=== PATIENT | female | born 1990 | race American Indian/Alaskan Native ===

== ENCOUNTER 2021-04-05 20:03 | Inpatient (IN) | payer SELFPAY ==
[2021-04-05] MEDS ORDERED: levETIRAcetam 1000 MG/NS 0.75% 1,000 MG/100 ML BAG IV ONE ×2 (20:43→22:01)
[2021-04-05] MEDS ORDERED: SODIUM CHLORIDE 0.9% 500 ML 500 ML IV ONE (20:43)
--- NOTE | 2021-04-05 20:45 | Emergency Department Report ---
ED General Adult HPI - General Chief complaint: Seizure Stated complaint: SEIZURES PUI?: No Time Seen by Provider: 04/05/21 20:39 Source: EMS (Verbal report received from emergency medical services. EMS documentation not available at time of chart dictation ), RN notes reviewed, old records reviewed Mode of arrival: Stretcher Limitations: Altered Mental Status - History of Present Illness Initial comments: The patient was evaluated in the emergency department for symptoms described in the history of present illness. He/she was evaluated in the context of the global COVID-19 pandemic, which necessitated consideration that the patient might be at risk for infection with the virus that causes COVID-19. Institutional protocols and algorithms that pertain to the evaluation of patients at risk for COVID-19 are in a state of rapid change based on information released by regulatory bodies including the CDC and federal and state organizations. These policies and algorithms were followed during the patient's care in the emergency department. Please note that these policies, procedures and recommendations changed on a rapid basis. The patient is a 31-year-old female, who was brought to the hospital today by EMS EMS articulated complaint of seizures. They reports that people who live with the patient called 911. They further report the patient had normal Accu-Chek and normal vital signs in the field. EMS believes the patient had a few seizures, the patient herself at this time is confused. She is not seizing initially in the emergency room. The patient then ambulated to the restroom, and was seen to have a generalized tonic-clonic event which was terminated. The patient is now sleeping comfortably in her stretcher, without evidence of further convulsive activity. -: This evening Severity scale (0 -10): 0 - Related Data Home Medications Medication Instructions Recorded Confirmed Last Taken Lacosamide [Vimpat] 150 mg PO BID 04/06/21 04/06/21 Unknown Previous Rx's Medication Instructions Recorded Last Taken Type OXcarbazepine [Trileptal] 300 mg PO BID #60 tablet 09/23/18 Unknown Rx levETIRAcetam [Keppra TAB] 500 mg PO BID #60 tablet 04/05/21 Unknown Rx Allergies Allergy/AdvReac Type Severity Reaction Status Date / Time No Known Allergies Allergy Unverified 01/13/14 17:02 ED Review of Systems ROS: Stated complaint: SEIZURES Other details as noted in HPI Comment: Unobtainable due to pts medical conditions ED Past Medical Hx - Past Medical History Hx Seizures: Yes - Social History Smoking Status: Never Smoker Substance Use Type: None - Medications Home Medications: Home Medications Medication Instructions Recorded Confirmed Last Taken Type OXcarbazepine [Trileptal] 300 mg PO BID #60 tablet 09/23/18 Unknown Rx levETIRAcetam [Keppra TAB] 500 mg PO BID #60 tablet 04/05/21 Unknown Rx Lacosamide [Vimpat] 150 mg PO BID 04/06/21 04/06/21 Unknown History ED Physical Exam - General Limitations: Altered Mental Status General appearance: alert, anxious, in distress - Head Head exam: Present: atraumatic, normocephalic - Eye Eye exam: Present: normal appearance, EOMI. Absent: nystagmus - ENT ENT exam: Present: normal exam, normal orophraynx, mucous membranes moist, normal external ear exam - Neck Neck exam: Present: normal inspection, full ROM. Absent: tenderness, meningismus - Respiratory Respiratory exam: Present: normal lung sounds bilaterally. Absent: respiratory distress, wheezes, rales, rhonchi, stridor, decreased breath sounds - Cardiovascular Cardiovascular Exam: Present: regular rate, normal rhythm, normal heart sounds. Absent: bradycardia, tachycardia, irregular rhythm, systolic murmur, diastolic murmur, rubs, gallop - GI/Abdominal GI/Abdominal exam: Present: soft. Absent: distended, tenderness, guarding, rebound, rigid, pulsatile mass - Extremities Exam Extremities exam: Present: normal inspection, full ROM, other (2+ pulses noted in the bilateral upper and lower extremities. There is no palpable cord. negative Homans sign. Muscular compartments are soft. The pelvis is stable.). Absent: pedal edema, calf tenderness - Back Exam Back exam: Present: normal inspection, full ROM. Absent: tenderness, CVA tenderness (R), CVA tenderness (L), paraspinal tenderness, vertebral tenderness - Neurological Exam Neurological exam: Present: altered, other (The patient is altered. The patient is moving 4 extremities. There is no obvious facial droop. The tongue is midline.) - Psychiatric Psychiatric exam: Present: anxious - Skin Skin exam: Present: warm, dry, intact, normal color. Absent: rash ED Course Vital Signs 04/05/21 04/05/2104/05/22 20:26 20:46 21:00 Temperature 98.4 F Pulse Rate 87 104 H Respiratory 18 24 Rate Blood Pressure 120/70 Blood Pressure 116/74 [Left] O2 Sat by Pulse 98 95 95 Oximetry O2 Sat by Pulse Oximetry [ Digit-Finger] 04/05/21 04/05/21 04/05/21 21:27 21:31 21:45 Temperature Pulse Rate 93 H 96 H 98 H Respiratory 26 H 26 H 17 Rate Blood Pressure Blood Pressure [Left] O2 Sat by Pulse 97 97 97 Oximetry O2 Sat by Pulse Oximetry [ Digit-Finger] 04/05/21 04/05/21 04/05/21 22:00 22:15 22:30 Temperature Pulse Rate 84 99 H 83 Respiratory 19 20 19 Rate Blood Pressure 120/72 120/72 Blood Pressure [Left] O2 Sat by Pulse 100 Oximetry O2 Sat by Pulse Oximetry [ Digit-Finger] 04/05/21 04/05/21 04/05/21 22:45 23:00 23:15 Temperature Pulse Rate 94 H 103 H 87 Respiratory 17 21 18 Rate Blood Pressure 120/72 Blood Pressure [Left] O2 Sat by Pulse Oximetry O2 Sat by Pulse Oximetry [ Digit-Finger] 04/05/21 04/05/21 04/06/21 23:30 23:45 00:00 Temperature Pulse Rate 100 H 93 H 97 H Respiratory 20 18 18 Rate Blood Pressure 120/72 120/72 Blood Pressure [Left] O2 Sat by Pulse Oximetry O2 Sat by Pulse Oximetry [ Digit-Finger] 04/06/21 04/06/21 04/06/21 00:15 00:25 00:31 Temperature Pulse Rate 103 H Respiratory 22 12 Rate Blood Pressure 120/72 120/72 Blood Pressure [Left] O2 Sat by Pulse Oximetry O2 Sat by Pulse 99 Oximetry [ Digit-Finger] 04/06/21 04/06/21 04/06/21 01:03 08:50 09:00 Temperature 97.9 F 98.9 F Pulse Rate 82 87 Respiratory 16 17 Rate Blood Pressure 120/72 128/80 Blood Pressure 126/73 [Left] O2 Sat by Pulse 100 98 Oximetry O2 Sat by Pulse Oximetry [ Digit-Finger] - Reevaluation(s) Reevaluation #1: 04/05/21 21:45 Differential diagnosis, including but not limited to: Seizure, noncompliance, dehydration, electrolyte derangement, intracranial injury, cervical spine injury, rhabdomyolysis Assessment and plan: 31-year-old female who was afebrile with reassuring vital signs, brought to the hospital today by EMS with an EMS articulated complaint of seizures. Patient was found on the floor by EMS, it is unclear if she hit her head, but here in the emergency room, patient had a seizure while in the bathroom, and landed on her side. A CT scan of the brain and cervical spine were negative for acute traumatic findings. Patient loaded with Keppra. No further seizures noted. Leukocytosis is likely a stress reaction. Urinalysis and x-ray the chest pending. Reassess after completion of acquisition of appropriate laboratory studies and diagnostics 04/05/21 23:33 Patient reassessed. No further seizures. Resting comfortably. She is found to have anion gap acidosis, which is likely secondary to convulsions/seizure. She was loaded with Keppra, and given fluids. Repeat basic metabolic panel is pending. Care will be transferred to the oncoming ER physician to follow-up on repeat basic metabolic panel. Should patient have normalization of mental status, and resolution of metabolic acidosis, it would be reasonable to discharge this patient home with Keppra. Patient has a known history of noncompliance, and her presentation today is likely secondary to seizures secondary to noncompliance. Reevaluation #2: 04/06/21 00:22 The photographic equipment technician is reporting to me that the patient is refusing repeat basic metabolic panel acquisition. The photographic equipment technician did report to me that the patient presented as awake, and conversant, and is asking for blankets and to go to the bathroom. I went back to the patient, and had an extensive discussion with her. I instructed her on the need and rationale behind repeating basic metabolic panel. However, the patient will not engage in a conversation with me. She did tell me that she wanted to go to the bathroom. I explained the need to obtain repeat basic metabolic panel, to ensure closure of anion gap and resolution of metabolic acidosis. However, the patient simply lays on her side, takes a cover, and puts it over her chest, and closes her eyes. The patient will not e ngage in an open ended discussion with me. I am not certain if the patient is postictal, or is demonstrating evidence of [place] II/personality disorder. Since the patient will not converse with me in an open ended fashion, I am not able to determine if this patient has decision-making capacity. Therefore, this patient cannot be discharged. I have advised the patient that if she will not participate in her medical care and does not demonstrate decision-making capacity, that she will be admitted to the medical service for supportive care. Hospital physician, Dr. Ren, to admit patient to the medical service for metabolic acidosis, presumed prolonged postictal state, and supportive care for history of seizures. - Pulse Oximetry Interpretation Digit-Finger Initial Pulse Oximetry Readin O2 Sat by Pulse Oximetry: 99 Actions Taken: none ED Medical Decision Making - Lab Data Result diagrams: 04/06/21 10:00 04/06/21 10:00 Vital Signs 04/05/21 20:26 Temperature 98.4 F Pulse Rate 87 Respiratory 18 Rate Blood Pressure 116/74 [Left] O2 Sat by Pulse 98 Oximetry Lab Results 04/05/21 04/05/21 04/05/21 Range/Units 20:49 20:49 20:49 WBC 24.3 H (4.5-11.0) K/mm3 RBC 4.53 (3.65-5.03) M/mm3 Hgb 11.4 (10.1-14.3) gm/dl Hct 37.3 (30.3-42.9) % MCV 83 (79-97) fl MCH 25 L (28-32) pg MCHC 31 (30-34) % RDW 16.7 H (13.2-15.2) % Plt Count 369 (140-440) K/mm3 Estimated GFR > 60 ml/min BUN/Creatinine Ratio 11 % Total Bilirubin < 0.20 (0.1-1.2) mg/dL Albumin/Globulin Ratio 1.2 % Acetaminophen 5.0 L (10.0-30.0) ug/mL Plasma/Serum Alcohol (0-0.07) % 04/05/21 Range/Units 20:49 WBC (4.5-11.0) K/mm3 RBC (3.65-5.03) M/mm3 Hgb (10.1-14.3) gm/dl Hct (30.3-42.9) % MCV (79-97) fl MCH (28-32) pg MCHC (30-34) % RDW (13.2-15.2) % Plt Count (140-440) K/mm3 Estimated GFR ml/min BUN/Creatinine Ratio % Total Bilirubin (0.1-1.2) mg/dL Albumin/Globulin Ratio % Acetaminophen (10.0-30.0) ug/mL Plasma/Serum Alcohol < 0.01 (0-0.07) % Lab Results 04/05/21 04/05/21 04/05/21 Range/Units 20:49 20:49 20:49 WBC 24.3 H (4.5-11.0) K/mm3 RBC 4.53 (3.65-5.03) M/mm3 Hgb 11.4 (10.1-14.3) gm/dl Hct 37.3 (30.3-42.9) % MCV 83 (79-97) fl MCH 25 L (28-32) pg MCHC 31 (30-34) % RDW 16.7 H (13.2-15.2) % Plt Count 369 (140-440) K/mm3 Sodium 136 L (137-145) mmol/L Potassium 4.0 (3.6-5.0) mmol/L Chloride 102.2 (98-107) mmol/L Carbon Dioxide 10 L (22-30) mmol/L Anion Gap 28 mmol/L BUN 10 (7-17) mg/dL Creatinine 0.9 (0.6-1.2) mg/dL Estimated GFR > 60 ml/min BUN/Creatinine Ratio 11 % Glucose 115 H (65-100) mg/dL Calcium 8.5 (8.4-10.2) mg/dL Magnesium 2.60 H (1.7-2.3) mg/dL Total Bilirubin < 0.20 (0.1-1.2) mg/dL AST 25 (5-40) units/L ALT 15 (7-56) units/L Alkaline Phosphatase 79 (35-129) units/L Total Creatine Kinase 245 H (30-135) units/L Total Protein 8.3 H (6.3-8.2) g/dL Albumin 4.6 (3.9-5) g/dL Albumin/Globulin Ratio 1.2 % HCG, Quant (0-4) mIU/mL Salicylates (2.8-20.0) mg/dL Acetaminophen (10.0-30.0) ug/mL Plasma/Serum Alcohol (0-0.07) % 04/05/21 04/05/21 04/05/21 Range/Units 20:49 20:49 20:49 WBC (4.5-11.0) K/mm3 RBC (3.65-5.03) M/mm3 Hgb (10.1-14.3) gm/dl Hct (30.3-42.9) % MCV (79-97) fl MCH (28-32) pg MCHC (30-34) % RDW (13.2-15.2) % Plt Count (140-440) K/mm3 Sodium (137-145) mmol/L Potassium (3.6-5.0) mmol/L Chloride (98-107) mmol/L Carbon Dioxide (22-30) mmol/L Anion Gap mmol/L BUN (7-17) mg/dL Creatinine (0.6-1.2) mg/dL Estimated GFR ml/min BUN/Creatinine Ratio % Glucose (65-100) mg/dL Calcium (8.4-10.2) mg/dL Magnesium (1.7-2.3) mg/dL Total Bilirubin (0.1-1.2) mg/dL AST (5-40) units/L ALT (7-56) units/L Alkaline Phosphatase (35-129) units/L Total Creatine Kinase (30-135) units/L Total Protein (6.3-8.2) g/dL Albumin (3.9-5) g/dL Albumin/Globulin Ratio % HCG, Quant < 2 (0-4) mIU/mL Salicylates < 0.3 L (2.8-20.0) mg/dL Acetaminophen 5.0 L (10.0-30.0) ug/mL Plasma/Serum Alcohol (0-0.07) % 04/05/21 Range/Units 20:49 WBC (4.5-11.0) K/mm3 RBC (3.65-5.03) M/mm3 Hgb (10.1-14.3) gm/dl Hct (30.3-42.9) % MCV (79-97) fl MCH (28-32) pg MCHC (30-34) % RDW (13.2-15.2) % Plt Count (140-440) K/mm3 Sodium (137-145) mmol/L Potassium (3.6-5.0) mmol/L Chloride (98-107) mmol/L Carbon Dioxide (22-30) mmol/L Anion Gap mmol/L BUN (7-17) mg/dL Creatinine (0.6-1.2) mg/dL Estimated GFR ml/min BUN/Creatinine Ratio % Glucose (65-100) mg/dL Calcium (8.4-10.2) mg/dL Magnesium (1.7-2.3) mg/dL Total Bilirubin (0.1-1.2) mg/dL AST (5-40) units/L ALT (7-56) units/L Alkaline Phosphatase (35-129) units/L Total Creatine Kinase (30-135) units/L Total Protein (6.3-8.2) g/dL Albumin (3.9-5) g/dL Albumin/Globulin Ratio % HCG, Quant (0-4) mIU/mL Salicylates (2.8-20.0) mg/dL Acetaminophen (10.0-30.0) ug/mL Plasma/Serum Alcohol < 0.01 (0-0.07) % - EKG Data -: EKG Interpreted by Me EKG shows normal: sinus rhythm Rate: normal - EKG Data 04/05/21 21:42 The EKG is interpreted at 21: 28 Sinus rhythm, 94 bpm. Normal axis, normal P wave axis, motion artifact, QTC 4 5 3 ms. Abnormal EKG. Not a STEMI. - Radiology Data Radiology results: pending, report reviewed, image reviewed interpreted by me: 1 view x-ray of the chest is interpreted by myself. X-ray is rotated, but no pneumothorax, no infiltrate, no CHF. CT CERVICAL SPINE WITHOUT CONTRAST INDICATION / CLINICAL INFORMATION: Seizure. TECHNIQUE: Axial CT images were obtained through the cervical spine. Sagittal and coronal reformatted images were produced. All CT scans at this location are performed using CT dose reduction for ALARA by means of automated exposure control. COMPARISON: None available. FINDINGS: VERTEBRAE: No significant abnormality. ALIGNMENT: No significant abnormality. DISC SPACES: No significant abnormality. FACET JOINTS: No significant abnormality. CRANIOCERVICAL JUNCTION:No significant abnormality. SPINAL CANAL: No significant abnormality. PARASPINAL SOFT TISSUES: No significant abnormality. ADDITIONAL FINDINGS: None. LUNG APICES: No significant abnormality of visualized lungs. IMPRESSION: 1. No significant abnormality. Signer Name: Tien Cronin DO Signed: 04/05/2021 8:[address] CERVICAL SPINE WITHOUT CONTRAST INDICATION / CLINICAL INFORMATION: Seizure. TECHNIQUE: Axial CT images were obtained through the cervical spine. Sagittal and coronal reformatted images were produced. All CT scans at this location are performed using CT dose reduction for ALARA by means of automated exposure control. COMPARISON: None available. FINDINGS: VERTEBRAE: No significant abnormality. ALIGNMENT: No significant abnormality. DISC SPACES: No significant abnormality. FACET JOINTS: No significant abnormality. CRANIOCERVICAL JUNCTION:No significant abnormality. SPINAL CANAL: No significant abnormality. PARASPINAL SOFT TISSUES: No significant abnormality. ADDITIONAL FINDINGS: None. LUNG APICES: No significant abnormality of visualized lungs. IMPRESSION: 1. No significant abnormality. Signer Name: Tien Tori Cronin DO Signed: 04/05/2021 8:32 PM Critical care attestation.: If time is entered above; I have spent that time in minutes in the direct care of this critically ill patient, excluding procedure time. ED Disposition Clinical Impression: Seizures, Noncompliance, Metabolic acidosis, Postictal confusion Disposition: 09 ADMITTED INPATIENT Is pt being admited?: Yes Does the pt Need Aspirin: No Condition: Good
[2021-04-05 21:23] LABS: Mean Corpuscular HGB Conc 31 % (30-34); Mean Corpuscular Volume 83 fl (79-97); Platelet Count 369 K/mm3 (140-440); Red Blood Count 4.53 M/mm3 (3.65-5.03); Red Cell Distribution Width 16.7 % (13.2-15.2)
[2021-04-05 21:24] LABS: Hematocrit 37.3 % (30.3-42.9); Hemoglobin 11.4 gm/dl (10.1-14.3)
--- NOTE | 2021-04-05 21:35 | Cat Scan Report ---
CT HEAD WITHOUT CONTRAST INDICATION / CLINICAL INFORMATION: Seizure. TECHNIQUE: All CT scans at this location are performed using CT dose reduction for ALARA by means of automated exposure control. COMPARISON: None available. FINDINGS: HEMORRHAGE: None. EXTRA-AXIAL SPACES: Normal in size and morphology for the patient's age. VENTRICULAR SYSTEM: Normal in size and morphology for the patient's age. CEREBRAL PARENCHYMA: No significant abnormality. No acute territorial infarct. MIDLINE SHIFT / HERNIATION: None. CEREBELLUM / BRAINSTEM: No significant abnormality. ORBITS: Normal as visualized SOFT TISSUES: No significant abnormality. SKULL: No significant abnormality. PARANASAL SINUSES / MASTOID AIR CELLS: Normal as visualized ADDITIONAL FINDINGS: None. IMPRESSION: 1. No acute intracranial abnormality. Signer Name: Tien Cronin DO Signed: 04/05/2021 9:31 PM Workstation Name: [id number]
--- NOTE | 2021-04-05 21:36 | Cat Scan Report ---
CT CERVICAL SPINE WITHOUT CONTRAST INDICATION / CLINICAL INFORMATION: Seizure. TECHNIQUE: Axial CT images were obtained through the cervical spine. Sagittal and coronal reformatted images were produced. All CT scans at this location are performed using CT dose reduction for ALARA by means of automated exposure control. COMPARISON: None available. FINDINGS: VERTEBRAE: No significant abnormality. ALIGNMENT: No significant abnormality. DISC SPACES: No significant abnormality. FACET JOINTS: No significant abnormality. CRANIOCERVICAL JUNCTION:No significant abnormality. SPINAL CANAL: No significant abnormality. PARASPINAL SOFT TISSUES: No significant abnormality. ADDITIONAL FINDINGS: None. LUNG APICES: No significant abnormality of visualized lungs. IMPRESSION: 1. No significant abnormality. Signer Name: Tien Cronin DO Signed: 04/05/2021 9:32 PM Workstation Name: [id number]
[2021-04-05 21:38] LABS: Alanine Aminotransferase 15 units/L (7-56); Albumin 4.6 g/dL (3.9-5); BUN/Creatinine Ratio 11; Blood Urea Nitrogen 10 mg/dL (7-17); Calcium 8.5 mg/dL (8.4-10.2); Hemolysis Index 9
[2021-04-05] MEDS ORDERED: LACTATED RINGERS 2,000 ML IV ONE (22:01)
--- NOTE | 2021-04-06 01:21 | XRay Report ---
CHEST 1 VIEW INDICATION / CLINICAL INFORMATION: seizure. COMPARISON: None available. FINDINGS: SUPPORT DEVICES: None. HEART / MEDIASTINUM: No significant abnormality. LUNGS / PLEURA: No significant pulmonary or pleural abnormality. No pneumothorax. ADDITIONAL FINDINGS: No significant additional findings. IMPRESSION: 1. No active cardiopulmonary disease. Signer Name: Rocky Rai II, MD Signed: 04/06/2021 1:17 AM Workstation Name: [id number]
[2021-04-06 02:55] LABS: BUN/Creatinine Ratio 13; Blood Urea Nitrogen 12 mg/dL (7-17); Calcium 7.6 mg/dL (8.4-10.2); Hemolysis Index 2
[2021-04-06] MEDS ORDERED: ALBUTEROL 2.5 MG/3 ML NEBU IH PRN (03:00)
[2021-04-06] MEDS ORDERED: MORPHINE 2 MG/1 ML INJ IV PRN (03:00)
[2021-04-06] MEDS ORDERED: ACETAMINOPHEN 325 MG TAB PO PRN (03:00)
[2021-04-06] MEDS ORDERED: D5W/0.45% NACL 1,000 ML IV SCH (03:00)
[2021-04-06] MEDS ORDERED: HYDROmorphone 1 MG/1 ML INJ IV PRN (03:00)
[2021-04-06] MEDS ORDERED: ONDANSETRON 4 MG/2 ML INJ IV PRN (03:00)
--- NOTE | 2021-04-06 03:08 | History and Physical Report ---
History of Present Illness Date of examination: 04/06/21 Date of admission: 04/06/21 Chief complaint: Seizure History of present illness: 31-year-old female with past medical history of seizure was brought to the emergency room because of complaint of seizures. Patient was found on the floor by EMS, it is unclear if she hit her head, but here in the emergency room, patient had a seizure while in the bathroom, and landed on her side. A CT scan of the brain and cervical spine were negative for acute traumatic findings. Patient loaded with Keppra. No further seizures noted. In the ER patient WBC is 24.3, CK 245. CT scan of the head shows no acute intracranial abnormality. We are going to admit the patient we will put the patient on Keppra 500 IV every 12 hours order EEG and consult neurology Past History Past Medical History: seizures Social history: other (Never a smoker) Medications and Allergies Allergies Allergy/AdvReac Type Severity Reaction Status Date / Time No Known Allergies Allergy Unverified 01/13/14 17:02 Home Medications Medication Instructions Recorded Confirmed Last Taken Type OXcarbazepine [Trileptal] 300 mg PO BID #60 tablet 09/23/18 Unknown Rx levETIRAcetam [Keppra TAB] 500 mg PO BID #60 tablet 04/05/21 Unknown Rx Review of Systems Constitutional: lethargy Neurological: seizures, confusion Exam - Constitutional Vitals: Temp Pulse Resp BP Pulse Ox 98.4 F 87 18 116/74 99 04/05/21 20:26 04/05/21 20:26 04/05/21 20:26 04/05/21 20:26 04/06/21 00:25 General appearance: Present: no acute distress, well-nourished - EENT Eyes: Present: PERRL ENT: hearing intact, clear oral mucosa - Neck Neck: Present: supple, normal ROM - Respiratory Respiratory effort: normal Respiratory: bilateral: diminished - Cardiovascular Heart Sounds: Present: S1 & S2. Absent: rub, click - Extremities Extremities: pulses symmetrical, No edema Peripheral Pulses: within normal limits - Abdominal General gastrointestinal: Present: soft, non-tender, non-distended, normal bowel sounds Female genitourinary: Present: normal - Integumentary Integumentary: Present: clear, warm, dry - Musculoskeletal Musculoskeletal: gait normal, strength equal bilaterally - Psychiatric Psychiatric: appropriate mood/affect, intact judgment & insight - Neurologic Neurologic: CNII-XII intact, moves all extremities Results - Labs CBC & Chem 7: 04/05/21 20:49 04/05/21 20:49 Labs: Laboratory Last Values WBC 24.3 K/mm3 (4.5-11.0) H 04/05/21 20:49 RBC 4.53 M/mm3 (3.65-5.03) 04/05/21 20:49 Hgb 11.4 gm/dl (10.1-14.3) 04/05/21 20:49 Hct 37.3 % (30.3-42.9) 04/05/21 20:49 MCV 83 fl (79-97) 04/05/21 20:49 MCH 25 pg (28-32) L 04/05/21 20:49 MCHC 31 % (30-34) 04/05/21 20:49 RDW 16.7 % (13.2-15.2) H 04/05/21 20:49 Plt Count 369 K/mm3 (140-440) 04/05/21 20:49 Sodium 136 mmol/L (137-145) L 04/05/21 20:49 Potassium 4.0 mmol/L (3.6-5.0) 04/05/21 20:49 Chloride 102.2 mmol/L (98-107) 04/05/21 20:49 Carbon Dioxide 10 mmol/L (22-30) L 04/05/21 20:49 Anion Gap 28 mmol/L 04/05/21 20:49 BUN 10 mg/dL (7-17) 04/05/21 20:49 Creatinine 0.9 mg/dL (0.6-1.2) 04/05/21 20:49 Estimated GFR > 60 ml/min 04/06/21 01:59 BUN/Creatinine Ratio 13 % 04/06/21 01:59 Glucose 115 mg/dL (65-100) H 04/05/21 20:49 Calcium 8.5 mg/dL (8.4-10.2) 04/05/21 20:49 Magnesium 2.60 mg/dL (1.7-2.3) H 04/05/21 20:49 Total Bilirubin < 0.20 mg/dL (0.1-1.2) 04/05/21 20:49 AST 25 units/L (5-40) 04/05/21 20:49 ALT 15 units/L (7-56) 04/05/21 20:49 Alkaline Phosphatase 79 units/L (35-129) 04/05/21 20:49 Total Creatine Kinase 245 units/L (30-135) H 04/05/21 20:49 Total Protein 8.3 g/dL (6.3-8.2) H 04/05/21 20:49 Albumin 4.6 g/dL (3.9-5) 04/05/21 20:49 Albumin/Globulin Ratio 1.2 % 04/05/21 20: HCG, Quant < 2 mIU/mL (0-4) 04/05/21: Salicylates < 0.3 mg/dL (2.8-20.0) L 04/05/21 20:49 Acetaminophen 5.0 ug/mL (10.0-30.0) L 04/05/21: Plasma/Serum Alcohol < 0.01 % (0-0.07) 04/05/21 20:49 - Imaging and Cardiology CT Scan - head: report reviewed Assessment and Plan VTE prophylaxis?: Mechanical Plan of care discussed with patient/family: Yes - Patient Problems (1) Seizures Current Visit: Yes Status: Acute Plan to address problem: Admit the patient to the medical floor. Patient is on seizure precaution. Keppra 500 mg IV every 12 hours. Trileptal 300 mg p.o. twice daily. EEG. Neurology evaluation (2) Metabolic acidosis Current Visit: Yes Status: Acute Plan to address problem: NPO. IV fluid D5 half-normal saline at the rate of 100 cc/h. Recheck BMP in the morning (3) Leukocytosis Current Visit: Yes Status: Acute Plan to address problem: Rocephin 2 g IV daily. We do the blood culture recheck CBC in the morning (4) Noncompliance Current Visit: Yes Status: Acute Plan to address problem: Patient counseled regarding taking medication regularly (5) Postictal confusion Current Visit: Yes Status: Acute Plan to address problem: Patient is on seizure precaution. Keppra 500 mg IV every 12 hours. Trileptal 300 mg p.o. twice daily. EEG. Neurology evaluation (6) DVT prophylaxis Current Visit: Yes Status: Acute Plan to address problem: SCD for DVT prophylaxis. Pepcid 20 mg IV every 12 hours for GI prophylaxis. Patient is a full code
[2021-04-06] MEDS ORDERED: cefTRIAXone/NS 2 GM/100 ML 2 GM/100 ML BAG IV SCH (04:00)
--- NOTE | 2021-04-06 09:54 | Consultation ---
History of Present Illness Consult date: 04/06/21 Reason for Consult: Seizure History of present illness: Seizure History of present illness: 31-year-old female with past medical history of seizure was brought to the emergency room because of complaint of seizures. Patient was found on the floor by EMS, it is unclear if she hit her head, but here in the emergency room, patient had a seizure while in the bathroom, and landed on her side. A CT scan of the brain and cervical spine were negative for acute traumatic findings. Patient loaded with Keppra. No further seizures noted. In the ER patient WBC is 24.3, CK 245. CT scan of the head shows no acute intracranial abnormality. Today she is seizure free she wants to go home, According to pt. she lives alone she is with hx of seizure since 2007 , no family hx of seizure According to her she is taking Trileptal 900 mg bid , and Vimpat 150 mg Bid ,get her medication from [facility] she is with recurrent seizure , she does not know how often seizure happen , refuse to give much of information she is in a bad mood , wants to go home had her cloth on and refuse to wear hospital gown. According to her she was tried on Keppra before and it does not help her seizure Past History Past Medical History: seizures Social history: other (Never a smoker) Medications and Allergies Allergies Allergy/AdvReac Type Severity Reaction Status Date / Time No Known Allergies Allergy Unverified 01/13/14 17:02 Home Medications Medication Instructions Recorded Confirmed Last Taken Type OXcarbazepine [Trileptal] 300 mg PO BID #60 tablet 09/23/18 Unknown Rx levETIRAcetam [Keppra TAB] 500 mg PO BID #60 tablet 04/05/21 Unknown Rx Review of Systems Constitutional: lethargy Neurological: seizures, confusion Exam Past History Past Medical History: seizures Social history: other (Never a smoker) Medications and Allergies Allergies Allergy/AdvReac Type Severity Reaction Status Date / Time No Known Allergies Allergy Unverified 01/13/14 17:02 Home Medications Medication Instructions Recorded Confirmed Last Taken Type OXcarbazepine [Trileptal] 300 mg PO BID #60 tablet 09/23/18 Unknown Rx levETIRAcetam [Keppra TAB] 500 mg PO BID #60 tablet 04/05/21 Unknown Rx Lacosamide [Vimpat] 150 mg PO BID 04/06/21 04/06/21 Unknown History Active Meds: Active Medications Acetaminophen (Acetaminophen 325 Mg Tab) 650 mg PO Q4H PRN PRN Reason: Pain MILD(1-3)/Fever >100.5/INMAN Albuterol (Albuterol 2.5 Mg/3 Ml Nebu) 2.5 mg IH Q3HRT PRN PRN Reason: Shortness Of Breath Albuterol/Ipratropium (Ipratropium/Albuterol Sulfate 3 Ml Ampul.Neb) 1 ampul IH Q6HRT ROBEL Famotidine (Famotidine 20 Mg/2 Ml Inj) 20 mg IV BID ROBEL Dextrose/Sodium Chloride (D5/0.45ns) 1,000 mls @ 100 mls/hr IV DIRECT ROBEL Levetiracetam 500 mg/ Dextrose 105 mls @ 400 mls/hr IV Q12HR ROBEL Ceftriaxone Sodium (Rocephin/Ns 2 Gm/100 Ml) 2 gm in 100 mls @ 200 mls/hr IV Q24HR ROBEL; Protocol Ondansetron HCl (Ondansetron 4 Mg/2 Ml Inj) 4 mg IV Q8H PRN PRN Reason: Nausea And Vomiting Oxcarbazepine (Oxcarbazepine 300 Mg Tab) 300 mg PO BID ROBEL Sodium Chloride (Sodium Chloride 0.9% 10 Ml Flush Syringe) 10 ml IV BID ROBEL Sodium Chloride (Sodium Chloride 0.9% 10 Ml Flush Syringe) 10 ml IV PRN PRN PRN Reason: LINE FLUSH Physical Examination - Vital Signs Vital Signs: Vital Signs Temp Pulse Resp BP Pulse Ox 98.4 F 87 18 116/74 98 04/05/21 20:26 04/05/21 20:26 04/05/21 20:26 04/05/21 20:26 04/05/21 20:26 - Constitutional General appearance: uncomfortable - EENT EENT: Present: PERRL, mucous membranes moist - Respiratory Respiratory: Present: lungs clear, rhonchi - Cardiovascular Cardiovascular: Present: regular rate, normal S1, normal S2 Extremities: Present: no peripheral edema bilatateraly, no clubbing, cyanosis - Gastrointestinal Gastrointestinal: Present: normoactive bowel sounds - Integumentary Integumentary: Present: normal - Neurologic Cranial nerve examination: PERRL, EOMI, intact Speech examination: intact Sensorimotor examination: intact Detailed motor examination: grossly full strength in Results - Laboratory Findings CBC and BMP: 04/05/21 20:49 04/06/21 10:00 Abnormal Lab Findings: Abnormal Labs 04/05/21 04/05/21 04/05/21 20:49 20:49 20:49 WBC 24.3 H MCH 25 L RDW 16.7 H Sodium 136 L Chloride Carbon Dioxide 10 L Glucose 115 H Calcium Magnesium 2.60 H Total Creatine Kinase 245 H Total Protein 8.3 H Salicylates Acetaminophen 04/05/21 04/05/21 04/06/21 20:49 20:49 01:59 WBC MCH RDW Sodium 136 L Chloride 108.1 H Carbon Dioxide 18 L D Glucose 108 H Calcium 7.6 L Magnesium Total Creatine Kinase Total Protein Salicylates < 0.3 L Acetaminophen 5.0 L Assessment and Plan Assessment and Plan 31-year-old female with past medical history of seizure was brought to the emergency room because of complaint of seizures. Patient was found on the floor by EMS, it is unclear if she hit her head, but here in the emergency room, patient had a seizure while in the bathroom, and landed on her side. A CT scan of the brain and cervical spine were negative for acute traumatic findings. - Patient Problems #Break through Seizures - she is with hx of seizure since 2007 -could not get clear hx recurrence from pt. -Not sure if compiling with medications -she is not interested in answering questions -suggest Place on Trileptal 450 mg bid -Vimpat 200 mg bid -stop Keppra -Seziure precaution -Neurology follow up # Metabolic acidosis - IV fluid D5 half-normal saline at the rate of 100 cc/h. Recheck BMP in the morning # Leukocytosis -Rocephin 2 g IV daily. - We do the blood culture recheck CBC in the morning - No sign to suggest [employer] infection she is alert oriented , walking around in her room. # Noncompliance is a possibility -Patient counseled regarding taking medication regularly # Postictal confusion -Patient is on seizure precaution. # DVT prophylaxis -SCD for DVT prophylaxis. - Pepcid 20 mg IV every 12 hours for GI prophylaxis. - Patient is a full code will follow as needed
[2021-04-06] MEDS ORDERED: OXcarbazepine 300 MG TAB PO SCH (10:00)
[2021-04-06] MEDS ORDERED: FAMOTIDINE 20 MG/2 ML INJ IV SCH (10:00)
--- NOTE | 2021-04-06 10:01 | Electrocardiograph Report ---
[facility] Test Date: 2021-04-05 Test Time: 21:28:52 Pat Name: DARIUSZ VÁZQUEZ Department: Room: A485 1 Gender: F Button Inspector: DELROY : 1990 Requested By: CARLOS A KNIGHT Order Number: [id number] Reading MD: Renan Isaac Measurements Intervals [place] Rate: 94 P: 67 GA: 142 QRS: 30 QRSD: 82 T: 49 QT: 362 QTc: 453 Interpretive Statements Sinus rhythm Probable left atrial enlargement No previous ECG available for comparison Electronically Signed On 04-06-2021 10:00:54 EST by Renan Isaac
[2021-04-06] MEDS: levETIRAcetam 500 MG in DEXTROSE 5% IN WATER 100 ML IV SCH ×2 (10:02→10:44)
[2021-04-06 10:33] LABS: Basophils % (Auto) 0.1 % (0.0-1.8); Hematocrit 31.8 % (30.3-42.9); Hemoglobin 10.3 gm/dl (10.1-14.3); Lymphocytes # (Auto) 1.5 K/mm3 (1.2-5.4); Mean Corpuscular HGB Conc 32 % (30-34); Mean Corpuscular Volume 79 fl (79-97); Monocytes # (Auto) 1.4 K/mm3 (0.0-0.8); Monocytes % (Auto) 10.7 % (0.0-7.3); Platelet Count 310 K/mm3 (140-440); Red Blood Count 4.03 M/mm3 (3.65-5.03); Red Cell Distribution Width 16.3 % (13.2-15.2)
[2021-04-06 10:35] LABS: BUN/Creatinine Ratio 11; Blood Urea Nitrogen 12 mg/dL (7-17); Hemolysis Index 2
[2021-04-06] MEDS ORDERED: OXcarbazepine 300 MG TAB PO ONE (10:41)
[2021-04-06] MEDS: IPRATROPIUM/ALBUTEROL SULFATE 3 ML AMPUL.NEB IH SCH ×2 (10:41→15:01)
[2021-04-06] MEDS ORDERED: LACOSAMIDE 200 MG in SODIUM CHLORIDE 0.9% 100 ML IV SCH (11:00)
[2021-04-06] MEDS ORDERED: OXcarbazepine 150 MG TAB PO ONE (11:30)
[2021-04-06] MEDS ORDERED: LACOSAMIDE 100 MG TAB PO SCH ×2 (11:30→22:00)
[2021-04-06 17:34] VITALS: BP 121/78
--- NOTE | 2021-04-06 18:21 | Discharge Summary ---
Providers - Providers Date of Admission: 04/06/21 03:01 Date of discharge: 04/06/21 Attending physician: SILAS LYLE MD 04/06/21 03:00 Consult to Physician [CONS] Routine Comment: Consulting Provider: DIANA THOMPSON Physician Instructions: Reason For Exam: seizure Primary care physician: GASOLINE TRUCK OPERATOR Hospitalization Condition: Good Hospital course: 31-year-old female with past medical history of seizure was brought to the emergency room because of complaint of seizures. Patient was found on the floor by EMS, it is unclear if she hit her head, but here in the emergency room, patient had a seizure while in the bathroom, and landed on her side. A CT scan of the brain and cervical spine were negative for acute traumatic findings. Patient loaded with Keppra. No further seizures noted. In the ER patient WBC is 24.3, CK 245. CT scan of the head shows no acute intracranial abnormality. We are going to admit the patient we will put the patient on Keppra 500 IV every 12 hours order EEG and consult neurology 31-year-old female with past medical history of seizure was brought to the emergency room because of complaint of seizures. Patient was found on the floor by EMS, it is unclear if she hit her head, but here in the emergency room, patient had a seizure while in the bathroom, and landed on her side. A CT scan of the brain and cervical spine were negative for acute traumatic findings. Patient loaded with Keppra. No further seizures noted. In the ER patient WBC is 24.3, CK 245. CT scan of the head shows no acute intracranial abnormality. We are going to admit the patient we will put the patient on Keppra 500 IV every 12 hours order EEG and consult neurology Discharge disposition: Patient typically takes Vimpat and Trileptal for seizures control from [facility]. Patient is a poor historian refusing to answer questions. No further seizures reported after patient was transferred from ER to the medical floor. Patient was evaluated by neurology. Neurology recommended to discontinue Keppra and resume her home meds. She was sleepy likely from postictal state which improved. The etiology of seizures appear to be noncompliance though patient does not confirm this. The plan was to continue to observe patient over the night to make sure his seizures did not recur however patient wanted to leave AGAINST MEDICAL ADVICE. Patient left AMA Disposition: LEFT AGAINST MEDICAL ADVICE Exam - Constitutional Vitals: Temp Pulse Resp BP Pulse Ox 98.0 F 80 16 121/78 98 04/06/21 17:01 04/06/21 17:01 04/06/21 17:01 04/06/21 17:01 04/06/21 17:01 Plan Follow up with: [facility] [Provider Group] - 3-5 Days NANCI BEAN MD [Staff Physician] - 3-5 Days NADEEN BELLO MD [Referring] - 3-5 Days Forms: AMA Form, Work/School Release Form(ED) Prescriptions: levETIRAcetam [Keppra TAB] 500 mg PO BID #60 tablet
[2021-04-06] MEDS ORDERED: OXcarbazepine 150 MG TAB PO SCH (22:00)
== END 2021-04-06 18:09 | disposition left against medical advice (07) | DRG 101 ==
LOC: ED 20:03 → 4A 04-06 03:01
PROVIDERS: ADMIT Hospitalist; ATTEND Internal Medicine
DX: R56.9 Unspecified convulsions (principal); E87.2 Acidosis; D72.829 Elevated white blood cell count, unspecified; Z91.19 Patient's noncompliance with other medical treatment and regimen
CPT/HCPCS: 36415; 70450; 71045; 72125; 80048; 80053; 80320; 82550; 83735; 84702; 85025; 85027; 93005; 93010; G0378; J3490; J7060; G0480; J1953; J7040; J7120